=== PATIENT | male | born 1995 | race Caucasian/White ===

== ENCOUNTER 2019-01-30 18:24 | Emergency (ER) | payer BC, OTHER ==
[2019-01-30] MEDS ORDERED: ALBUTEROL 2.5 MG/3 ML NEB SOL ONE (18:59)
--- NOTE | 2019-01-30 20:20 | RAD REPORT ---
EXAM DESCRIPTION: RAD - Chest Pa And Lat (2 Views) - 01/30/2019 8:13 pm CLINICAL HISTORY: COUGH Chest pain. COMPARISON: <Comparisons> FINDINGS: The lungs are clear. The heart is normal in size. No displaced fractures. IMPRESSION: No acute or concerning finding suspected.
--- NOTE | 2019-01-30 20:23 | EDPHYS ---
Physician Documentation [facility] Name: Cristian Gil Age: 23 yrs Sex: Male : 1995 Arrival Date: 01/30/2019 Time: 18:29 Bed 30 Private MD: ED Physician Mark Knott HPI: 01/30 18:54 This 23 yrs old Male presents to ER via Ambulatory with complaints of Cough. snw 18:54 The patient or guardian reports cough, described as moderate, described as severe, with snw no sputum. Onset: The symptoms/episode began/occurred 1 week(s) ago. Severity of symptoms: At their worst the symptoms were moderate, in the emergency department the symptoms are unchanged. Associated signs and symptoms: The patient has no apparent associated signs or symptoms. The patient has not experienced similar symptoms in the past. The patient has not recently seen a physician. Historical: - Allergies: 18:34 No Known Allergies; la1 - PMHx: 18:34 None; la1 - Immunization history:: Adult Immunizations up to date. - Social history:: Smoking status: Patient/guardian denies using tobacco. - Ebola Screening: : No symptoms or risks identified at this time. ROS: 18:54 Constitutional: Negative for fever, chills, and weight loss, Eyes: Negative for injury, snw pain, redness, and discharge, ENT: Negative for injury, pain, and discharge, Neck: Negative for injury, pain, and swelling, Cardiovascular: Negative for chest pain, palpitations, and edema. 18:54 Back: Negative for injury and pain, : Negative for injury, bleeding, discharge, and swelling, MS/Extremity: Negative for injury and deformity, Skin: Negative for injury, rash, and discoloration, Neuro: Negative for headache, weakness, numbness, tingling, and seizure, Psych: Negative for depression, anxiety, suicide ideation, homicidal ideation, and hallucinations. 18:54 Respiratory: Positive for cough. 18:54 Abdomen/GI: Positive for diarrhea. Exam: 18:53 Constitutional: This is a well developed, well nourished patient who is awake, alert, snw and in no acute distress. Head/Face: Normocephalic, atraumatic. Eyes: Pupils equal round and reactive to light, extra-ocular motions intact. Lids and lashes normal. Conjunctiva and sclera are non-icteric and not injected. Cornea within normal limits. Periorbital areas with no swelling, redness, or edema. ENT: Nares patent. No nasal discharge, no septal abnormalities noted. Tympanic membranes are normal and external auditory canals are clear. Oropharynx with no redness, swelling, or masses, exudates, or evidence of obstruction, uvula midline. Mucous membranes moist. Neck: Trachea midline, no thyromegaly or masses palpated, and no cervical lymphadenopathy. Supple, full range of motion without nuchal rigidity, or vertebral point tenderness. No Meningismus. Chest/axilla: Normal chest wall appearance and motion. Nontender with no deformity. No lesions are appreciated. Cardiovascular: Regular rate and rhythm with a normal S1 and S2. No gallops, murmurs, or rubs. Normal PMI, no JVD. No pulse deficits. Abdomen/GI: Soft, non-tender, with normal bowel sounds. No distension or tympany. No guarding or rebound. No evidence of tenderness throughout. Back: No spinal tenderness. No costovertebral tenderness. Full range of motion. Skin: Warm, dry with normal turgor. Normal color with no rashes, no lesions, and no evidence of cellulitis. MS/ Extremity: Pulses equal, no cyanosis. Neurovascular intact. Full, normal range of motion. Neuro: Awake and alert, GCS 15, oriented to person, place, time, and situation. Cranial nerves II-XII grossly intact. Motor strength 5/5 in all extremities. Sensory grossly intact. Cerebellar exam normal. Normal gait. Psych: Awake, alert, with orientation to person, place and time. Behavior, mood, and affect are within normal limits. 18:53 Respiratory: the patient does not display signs of respiratory distress, Respirations: normal, Breath sounds: bronchial sounds, that are moderate, are heard diffusely, wheezing: expiratory is scattered, bronchitic cough. Vital Signs: 18:34 BP 145 / 85; Pulse 72; Resp 16; Temp 97.2; Pulse Ox 97% on R/A; Weight 106.59 kg; la1 Height 5 ft. 10 in. (177.80 cm); 18:34 Body Mass Index 33.72 (106.59 kg, 177.80 cm) la1 MDM: 18:37 Patient medically screened. snw 20:23 Data reviewed: vital signs, nurses notes, radiologic studies. Data interpreted: Pulse snw oximetry: on room air is 97 %. Interpretation: normal. Counseling: I had a detailed discussion with the patient and/or guardian regarding: the historical points, exam findings, and any diagnostic results supporting the discharge/admit diagnosis, radiology results, the need for outpatient follow up, to return to the emergency department if symptoms worsen or persist or if there are any questions or concerns that arise at home. Response to treatment: There is no appreciated change of the patient's symptoms at this time. Special discussion: I have referred the patient to see his PCP for further evaluation of high blood pressure. Based on the history and exam findings, there is no indication for further emergent testing or inpatient evaluation. I discussed with the patient/guardian the need to see the primary care provider for further evaluation of the symptoms. 01/30 18:46 Order name: Flu; Complete Time: 19:29 aj1 01/30 19:29 Order name: Chest Pa And Lat (2 Views) XRAY; Complete Time: 20:24 snw Administered Medications: 19:09 Drug: Albuterol 2.5 mg Route: Inhalation; aj1 20:36 Follow up: Response: No adverse reaction aj1 20:30 Drug: Tussionex Pennkinetic ER 5 ml Route: PO; aj1 20:35 Follow up: Response: No adverse reaction aj1 Disposition: 01/30/19 20:23 Discharged to Home. Impression: Bronchitis, not specified as acute or chronic. - Condition is Stable. - Discharge Instructions: Acute Bronchitis, Adult, Hypertension, Cough, Adult, Form - Blood Pressure Record Sheet. - Prescriptions for Tessalon Perles 100 mg Oral Capsule - take 1 capsule by ORAL route every 8 hours As needed; 15 capsule. Albuterol Sulfate 90 mcg/actuation - inhale 1-2 puff by INHALATION route every 4-6 hours; 1 Inhaler. - Work release form, Medication Reconciliation Form, Thank You Letter, Antibiotic Education, Prescription Opioid Use form. - Follow up: Private Physician; When: 2 - 3 days; Reason: Recheck today's complaints, Continuance of care, Re-evaluation by your physician. Follow up: Emergency Department; When: As needed; Reason: Worsening of condition. Addendum: 02/01/2019 07:43 Co-signature as Attending Physician, Mark Knott MD I agree with the assessment and k dr plan of care. Signatures: Dispatcher [employer] Chasity Castañeda, RN RN aj1 Mark Knott MD MD [facility] Lorena Hernandez, MANNEQUIN SANDER AND FINISHER-C [employer]NE[employer] S[employer]ER AND FINISHER-[employer] Saleem Matta, RN RN la1 Corrections: (The following items were deleted from the chart) 01/30 20:37 20:23 01/30/2019 20:23 Discharged to Home. Impression: Bronchitis, not specified as aj1 acute or chronic. Condition is Stable. Discharge Instructions: Acute Bronchitis, Adult, Hypertension, Cough, Adult, Form - Blood Pressure Record Sheet. Prescriptions for Tessalon Perles 100 mg Oral Capsule - take 1 capsule by ORAL route every 8 hours As needed; 15 capsule, Albuterol Sulfate 90 mcg/actuation - inhale 1-2 puff by INHALATION route every 4-6 hours; 1 Inhaler. and Forms are Work release form, Medication Reconciliation Form, Thank You Letter, Antibiotic Education, Prescription Opioid Use. Follow up: Private Physician; When: 2 - 3 days; Reason: Recheck today's complaints, Continuance of care, Re-evaluation by your physician. Follow up: Emergency Department; When: As needed; Reason: Worsening of condition. snw
--- NOTE | 2019-01-30 20:23 | ER ---
Nurse's Notes [facility] Name: Cristian Gil Age: 23 yrs Sex: Male : 1995 Arrival Date: 01/30/2019 Time: 18:29 Bed 30 Private MD: Diagnosis: Bronchitis, not specified as acute or chronic Presentation: 01/30 18:34 Presenting complaint: Patient states: cough for one week. Transition of care: patient la1 was not received from another setting of care. Onset of symptoms was January 30, 2019. Risk Assessment: Do you want to hurt yourself or someone else? Patient reports no desire to harm self or others. Initial Sepsis Screen: Does the patient meet any 2 criteria? No. Patient's initial sepsis screen is negative. Does the patient have a suspected source of infection? No. Patient's initial sepsis screen is negative. Care prior to arrival: None. 18:34 Method Of Arrival: Ambulatory la1 18:34 Acuity: STAN 4 la1 Historical: - Allergies: 18:34 No Known Allergies; la1 - PMHx: 18:34 None; la1 - Immunization history:: Adult Immunizations up to date. - Social history:: Smoking status: Patient/guardian denies using tobacco. - Ebola Screening: : No symptoms or risks identified at this time. Screenin:40 Abuse screen: Denies threats or abuse. Denies injuries from another. Nutritional aj1 screening: No deficits noted. Tuberculosis screening: No symptoms or risk factors identified. 20:37 Fall Risk None identified. aj1 Assessment: 18:40 General: Appears in no apparent distress. comfortable, Behavior is calm, cooperative, aj1 appropriate for age. Pain: Denies pain. Neuro: Level of Consciousness is awake, alert, obeys commands, Oriented to person, place, time, situation. Cardiovascular: Patient's skin is warm and dry. Respiratory: Airway is patent Respiratory effort is even, unlabored, Respiratory pattern is regular, symmetrical, Breath sounds with wheezes bilaterally. GI: No signs and/or symptoms were reported involving the gastrointestinal system. : No signs and/or symptoms were reported regarding the genitourinary system. EENT: No signs and/or symptoms were reported regarding the EENT system. Derm: No signs and/or symptoms reported regarding the dermatologic system. Skin is pink, warm \T\ dry. normal. Musculoskeletal: No signs and/or symptoms reported regarding the musculoskeletal system. Circulation, motion, and sensation intact. 19:40 Reassessment: Patient appears in no apparent distress at this time. No changes from aj1 previously documented assessment. Patient and/or family updated on plan of care and expected duration. Pain level reassessed. Patient is alert, oriented x 3, equal unlabored respirations, skin warm/dry/pink. 20:36 Reassessment: Patient appears in no apparent distress at this time. No changes from aj1 previously documented assessment. Patient and/or family updated on plan of care and expected duration. Pain level reassessed. Patient is alert, oriented x 3, equal unlabored respirations, skin warm/dry/pink. Vital Signs: 18:34 BP 145 / 85; Pulse 72; Resp 16; Temp 97.2; Pulse Ox 97% on R/A; Weight 106.59 kg; la1 Height 5 ft. 10 in. (177.80 cm); 18:34 Body Mass Index 33.72 (106.59 kg, 177.80 cm) la1 ED Course: 18:29 Patient arrived in ED. mr 18:34 Lorena Hernandez, SUSI is [facility]. snw 18:34 Mark Knott MD is Attending Physician. snw 18:34 Arm band placed on right wrist. la1 18:35 Triage completed. la1 18:40 Patient has correct armband on for positive identification. aj1 18:40 No provider procedures requiring assistance completed. aj1 19:05 Chasity Coley, RN is Primary Nurse. aj1 20:14 Chest Pa And Lat (2 Views) XRAY In Process Unspecified. EDMS 20:36 Patient did not have IV access during this emergency room visit. aj1 Administered Medications: 19:09 Drug: Albuterol 2.5 mg Route: Inhalation; aj1 20:36 Follow up: Response: No adverse reaction aj1 20:30 Drug: Tussionex Pennkinetic ER 5 ml Route: PO; aj1 20:35 Follow up: Response: No adverse reaction aj1 Outcome: 20:23 Discharge ordered by . snw 20:37 Discharged to home ambulatory, with family. aj1 20:37 Condition: good 20:37 Discharge instructions given to patient, Instructed on discharge instructions, follow up and referral plans. medication usage, Demonstrated understanding of instructions, follow-up care, medications, Prescriptions given X 2. 20:37 Patient left the ED. aj1 Signatures: Dispatcher [employer] EDChasity Marshall, ARTURO RN aj1 Lorena Hernandez, AMBULATORY CARE COORDINATOR-C AMBULATORY CARE COORDINATOR-Csnw MagañaLeesa mr PaxtonSaleem RN RN la1
[2019-01-30] MEDS ORDERED: HYDROCODONE/CHLORPHEN 5 ML/OSYR ONE (20:33)
[2019-01-30 21:18] VITALS: BP 145/85; TEMP 97.2; O2SAT 97
== END 2019-01-30 20:37 | disposition home or self-care (01) ==
LOC: ER 18:24
DX: J40 Bronchitis, not specified as acute or chronic (principal)
CPT/HCPCS: 71046; 87804; 99284